=== PATIENT | female | born 1945 | race Caucasian/White ===

== ENCOUNTER 2017-03-19 05:43 | Emergency (ER) | payer MEDICARE, OTHER ==
--- NOTE | 2017-03-19 06:21 | ER Document Report ---
ED General - General Information source: Patient - HPI Onset: Other - 3 days <SHAW ROTH - Last Filed: 03/19/17 06:28> <IGOR MOMIN - Last Filed: 03/19/17 12:09> - General Chief Complaint: Weakness Stated Complaint: FEELING DEHYDRATED Time Seen by Provider: 03/19/17 06:18 Notes: Patient is a 72 year old female who presets to the ED with complaints of fever and chills and maxillary sinus pressure x3 days. Patient states she went to urgent care yesterday and was told she had a sinus infection and was placed on Amoxicillin and Zofran. Patient states she has been weak and tired and been nauseated. Patient states starting Sunday she starting having a dry mouth, increased thrist and frequent urination. Patient has not had any vomiting. ( SHAW ROTH) - Related Data Allergies/Adverse Reactions: acetaminophen [From Drixoral Allergy Sinus] Allergy (Intermediate, Verified 07:41) Hallucinations Dexbrompheniramine [From Drixoral Allergy Sinus] Allergy (Intermediate, Verified 03/19/17 07:41) Hallucinations meperidine HCl [From Demerol] Allergy (Intermediate, Verified 03/19/17 07:41) Hyperactivity pseudoephedrine HCl [From Drixoral Allergy Sinus] Allergy (Intermediate, Verified 03/19/17 07:41) Hallucinations ciprofloxacin [From Cipro] Adverse Reaction (Severe, Verified 03/19/17 07:41) ITCHY RASH ciprofloxacin HCl [From Cipro] Adverse Reaction (Severe, Verified 03/19/17 07:41 ) ITCHY RASH oxycodone HCl [From Percocet] Adverse Reaction (Severe, Verified 03/19/17 07:41) SEVERE HEADACHE Sulfa (Sulfonamide Antibiotics) Adverse Reaction (Severe, Verified 03/19/17 07: 41) Hives quinine [Quinine] Adverse Reaction (Verified 03/19/17 07:41) Hives Home Medications: Current Home Medications Amoxicillin 875 mg PO Q12 03/19/17 [History] Aspirin [Aspirin 81 mg Chewable Tablet] 81 mg PO DAILY 03/19/17 [History] Calcium Carbonate [Calcium] 600 mg PO DAILY 03/19/17 [History] Flaxseed Oil/[place] 3,6,9 [Sv Flaxseed Oil 1,300 mg Sftgl] 1 each PO DAILY [History] Fluticasone Propionate [Flonase Nasal [place] 50 Mcg/[place] 16 gm] 2 sprays NASL DAILY 03/19/17 [History] [place]-3/Dha/Epa/Fish Oil [Fish Oil 1,000 mg Softgel] 1,000 mg PO DAILY 03/19/17 [History] Ondansetron [Ondansetron Odt] 4 mg PO Q6 PRN 03/19/17 [History] Pantoprazole Sodium [Protonix] 40 mg PO DAILY 03/19/17 [History] Past Medical History - General Information source: Patient - Social History Smoking Status: Unknown if Ever Smoked Family History: Malignancy - father of brain cancer, mother of liver cancer Pulmonary Medical History: Reports: Hx Bronchitis Endocrine Medical History: Reports: Hx Hypothyroidism GI Medical History: Reports: Hx Gastroesophageal Reflux Disease, Hx Colonoscopy , Hx Endoscopy Musculoskeltal Medical History: Denies Hx Arthritis Psychiatric Medical History: Reports: Hx Depression - Immunizations Hx Diphtheria, Pertussis, Tetanus Vaccination: No <SHAW ROTH - Last Filed: 03/19/17 06:28> <IGOR MOMIN - Last Filed: 03/19/17 12:09> - Past Medical History Other: tachycardia (SHAW ROTH) Review of Systems - Review of Systems Constitutional: See HPI, Chills, Fever, Malaise, Weakness EENT: No symptoms reported, Other - sinus infection, maxillary sinus pressure Cardiovascular: No symptoms reported Respiratory: No symptoms reported Gastrointestinal: See HPI, Nausea. denies: Vomiting Genitourinary: See HPI, Frequency Female Genitourinary: No symptoms reported Musculoskeletal: No symptoms reported Skin: No symptoms reported Hematologic/Lymphatic: No symptoms reported Neurological/Psychological: See HPI, Weakness <SHAW ROTH - Last Filed: 03/19/17 06:28> Physical Exam - General General appearance: Appears well, Alert In distress: None - HEENT Head: Normocephalic, Atraumatic Eyes: Normal Extraocular movements intact: Yes Pupils: PERRL Tympanic membrane: Normal Mucous membranes: Normal - Respiratory Respiratory status: No respiratory distress Breath sounds: Normal - Cardiovascular Rhythm: Regular, Tachycardia Heart sounds: Normal auscultation Murmur: No - Abdominal Inspection: Normal Distension: No distension Bowel sounds: Normal Tenderness: Nontender - Back Back: Normal - Extremities General upper extremity: Normal inspection, Normal ROM General lower extremity: Normal inspection, Normal ROM - Neurological Neuro grossly intact: Yes - Psychological Associated symptoms: Normal affect, Normal mood - Skin Skin Temperature: Warm Skin Moisture: Dry Skin Color: Normal <IRASHAW - Last Filed: 03/19/17 06:28> - Vital signs Vitals: Temp Pulse Resp BP Pulse Ox 99.2 F 111 H 18 132/69 H 95 03/19/17 06:02 03/19/17 06:02 03/19/17 06:02 03/19/17 06:02 03/19/17 06:02 Course <IRASHAW - Last Filed: 03/19/17 06:28> - Laboratory Result Diagrams: 03/19/17 06:50 03/19/17 06:50 - EKG Interpretation by Me EKG shows normal: Sinus rhythm, [place], Intervals, QRS Complexes. abnormal: ST-T Waves - Diffuse borderline T abnormalities Rate: Tachycardia - 116 P Waves: BRYAN When compared to previous EKG there are: Previous EKG unavailable <IGOR MOMIN - Last Filed: 03/19/17 12:09> - Re-evaluation Re-evalutation: 03/19/17 08:56 The patient is on her third liter of fluid at this time, she has not urinated yet but feels that she probably could. She is complaining of a headache now and nauseousness. Her heart rate is about 120, she had not taken her metoprolol for rate control this morning. 03/19/17 10:44 Heart rate is now down to 108. Patient states she vomited very bitter tasting substance and then began to feel much better. She does not feel as dehydrated at this time. Her headache has improved following the Toradol. (IGOR MOMIN) - Vital Signs Vital signs: Temp Pulse Resp BP Pulse Ox 99.2 F 111 H 18 101/71 91 L 03/19/17 06:02 03/19/17 06:02 03/19/17 11:01 03/19/17 11:01 03/19/17 11:01 - Laboratory Laboratory results interpreted by me: 03/19/17 03/19/17 03/19/17 06:50 06:50 09:19 WBC 15.9 H Seg Neutrophils % 87.4 H Lymphocytes % 6.5 L Absolute Neutrophils 13.9 H Sodium 135.9 L Glucose 120 H Direct Bilirubin 0.6 H Urine Protein 30 H Urine Ketones 20 H Urine Urobilinogen 2.0 H Ur Leukocyte Esterase SMALL H Discharge <SHAW ROTH - Last Filed: 03/19/17 06:28> <IGOR MOMIN - Last Filed: 03/19/17 12:09> - Discharge Clinical Impression: Fever and chills, Dehydration, Tachycardia Maxillary sinusitis Qualifiers: Chronicity: acute Recurrence: non-recurrent Qualified Code(s): J01.00 - Acute maxillary sinusitis, unspecified Nausea & vomiting Qualifiers: Vomiting type: bilious vomiting Qualified Code(s): R11.14 - Bilious vomiting Leukocytosis Qualifiers: Leukocytosis type: unspecified Qualified Code(s): D72.829 - Elevated white blood cell count, unspecified Condition: Stable Disposition: HOME, SELF-CARE Additional Instructions: Continue all your regular medications. Take antacids today to neutralize stomach acid. Rest. Follow-up with your doctor if not improving. RETURN TO THE EMERGENCY ROOM IF ANY NEW OR WORSENING SYMPTOMS. Referrals: RACHEL PAYTON FNP [Primary Care Provider] - Follow up as needed [place] Attestation: 03/19/17 09:46 I personally performed the services described in the documentation, reviewed and edited the documentation which was dictated to the scribe in my presence, and it accurately records my words and actions. (IGOR MOMIN) [place] Documentation - Scribe Written by Flakita:: flakita Brasher, 03/19/2017, 06 acting as scribe for :: Becky <SHAW ROTH - Last Filed: 03/19/17 06:28>
[2017-03-19] MEDS ORDERED: NORMAL SALINE 1000 ML 1,000 ML IV ONE (06:30)
[2017-03-19 07:03] LABS: ABSOLUTE MONOCYTES (AUTO) 0.9 10^3/uL (0.1-1.4); ABSOLUTE NEUT (AUTO) 13.9 10^3/uL (1.7-8.2); BASOPHILS % (AUTO) 0.2 % (0-2); HEMATOCRIT 36.1 % (36.0-47.0); HEMOGLOBIN 12.4 g/dL (12.0-15.5); HGB HCT DIFFERENCE 1.1; LYMPHOCYTES % (AUTO) 6.5 % (13-45); MEAN CORPUSCULAR HEMOGLOBIN 30.7 pg (27.0-33.4); MEAN CORPUSCULAR HGB CONC 34.3 g/dL (32.0-36.0); MEAN CORPUSCULAR VOLUME 90 fl (80-97); MONOCYTES % (AUTO) 5.9 % (3-13); RED BLOOD COUNT 4.03 10^6/uL (3.72-5.28); RED CELL DISTRIBUTION WIDTH 13.2 % (11.5-14.0); SEGMENTED NEUTROPHILS % (AUTO) 87.4 % (42-78); WHITE BLOOD COUNT 15.9 10^3/uL (4.0-10.5)
[2017-03-19 07:15] LABS: ALANINE AMINOTRANSFERASE 33 U/L (9-52); ALBUMIN 3.7 g/dL (3.5-5.0); ALKALINE PHOSPHATASE 84 U/L (38-126); ANION GAP 10 (5-19); ASPARTATE AMINO TRANSFERASE 25 U/L (14-36); BILIRUBIN,DIRECT 0.6 mg/dL (0.0-0.4); BILIRUBIN,TOTAL 0.9 mg/dL (0.2-1.3); BLOOD UREA NITROGEN 8 mg/dL (7-20); CALCIUM 8.9 mg/dL (8.4-10.2); CARBON DIOXIDE 24 mmol/L (22-30); CHLORIDE 102 mmol/L (98-107); CREATINE KINASE 37 U/L (30-135); CREATININE RESULT 0.58 mg/dL (0.52-1.25); GLUCOSE 120 mg/dL (75-110); POTASSIUM 3.8 mmol/L (3.6-5.0); SODIUM 135.9 mmol/L (137-145); TOTAL PROTEIN 6.4 g/dL (6.3-8.2)
[2017-03-19] MEDS ORDERED: RINGERS SOLUTION,LACTATED 1,000 ML IV ONE ×2 (07:34→10:43)
--- NOTE | 2017-03-19 08:44 | EKG REPORT ---
SEVERITY:- ABNORMAL ECG - ATRIAL-PACED COMPLEXES RIGHT ATRIAL ABNORMALITY BORDERLINE T ABNORMALITIES, DIFFUSE LEADS : Confirmed by: Reginaldo Carrera 19-Mar-2017 08:43:51
[2017-03-19] MEDS ORDERED: METOPROLOL TARTRATE PF/INJ 5 MG/5 ML SDV IV ONE ×2 (08:54→10:42)
[2017-03-19] MEDS ORDERED: ONDANSETRON HCL INJ/PF 4 MG/2 ML SDV IV ONE (08:55)
[2017-03-19] MEDS ORDERED: KETOROLAC TROMETHAMINE INJ/PF 30 MG/1 ML SDV IV ONE (08:56)
[2017-03-19 09:36] LABS: AMORPHOUS SEDIMENT,URINE TRACE /HPF; APPEARANCE,URINE SLIGHTLY-CLOUDY; BILIRUBIN,URINE NEGATIVE (NEGATIVE); GLUCOSE, URINE NEGATIVE (NEGATIVE); KETONES,URINE 20 mg/dL (NEGATIVE); LEUKOCYTE ESTERASE,URINE SMALL (NEGATIVE); NITRITE,URINE NEGATIVE (NEGATIVE); PROTEIN,URINE 30 mg/dL (NEGATIVE); URINE SPECIFIC GRAVITY 1.011
[2017-03-19] MEDS ORDERED: CEFTRIAXONE 1 GM/D5W RTU 1 GM/50 ML RTUPB IV ONE (11:30)
[2017-03-19 12:18] VITALS: BP 120/64
== END 2017-03-19 12:33 | disposition home or self-care (01) ==
LOC: ER 05:43
DX: J01.00 Acute maxillary sinusitis, unspecified (principal); R11.14 Bilious vomiting; D72.829 Elevated white blood cell count, unspecified; R00.0 Tachycardia, unspecified; E86.0 Dehydration; R53.1 Weakness; R50.9 Fever, unspecified; Z88.6 Allergy status to analgesic agent; Z88.3 Allergy status to other anti-infective agents; Z88.2 Allergy status to sulfonamides
CPT/HCPCS: 93005; 96376; 99285; 96361; 96375; 96365; 96366; 96368; 36415; 87040; 82550; 85025; 80053; 81001; 84484; 93010; J1885; J3490; J2405; J7030; J7120; J0696